=== PATIENT | male | born 1950 | race Caucasian/White ===

== ENCOUNTER 2020-08-24 09:35 | Emergency (ER) | payer MEDICARE ==
[~2020-08-24] VITALS: Ht 180.3 cm; Wt 117.5 kg
--- NOTE | 2020-08-24 09:52 | Emergency Department Note ---
History of Present Illnes History of Present Illness Chief Complaint: Back Pain History of Present Illness This is a 70 year old male Chief Complaint Comment Patient in from home with complaints of left hip pain that radiates down his left leg for 5 days. Patient reports a history of kidney stones but states this pain is not similar to the pain he has experienced with kidney stones in the past. 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 Historian: Patient Arrival Mode: Car Visitor Services Associate Required: No Onset (how long ago): day(s) (4) Location: L hip Quality: sharp Radiation: Reports extremity (LLL) Severity: moderate Onset quality: gradual Duration (how long): day(s) (4) Timing of current episode: constant Progression: worsening Chronicity: new Context: Denies recent illness, Denies recent surgery Relieving factors: none Exacerbating factors: none Associated symptoms: Reports denies other symptoms Treatments prior to arrival: other (Tylenol) Past Medical/Family History Physician Review I have reviewed the patient's past medical and family history. Any updates have been documented here. Past Medical History Recent Fever: No Clinical Suspicion of Infectio: No New/Unexplained Change in Ment: No Review of Systems Review of Systems Constitutional: Reports no symptoms EENTM: Reports no symptoms Cardiovascular: Reports no symptoms Respiratory: Reports no symptoms Gastrointestinal: Reports no symptoms Genitourinary: Reports no symptoms Musculoskeletal: Reports as per HPI (L hip and lateral leg pain) Integumentary: Reports no symptoms Neurological: Reports no symptoms Psychological: Reports no symptoms Endocrine: Reports no symptoms Hematological/Lymphatic: Reports no symptoms Physical Exam Related Data Allergies: Coded Allergies: bacitracin (Verified Allergy, Intermediate, 08/24/20) neomycin (Verified Allergy, Intermediate, 08/24/20) polymyxin B (Verified Allergy, Intermediate, 08/24/20) Triage Vital Signs Vital Signs Date Time Temp Pulse Resp B/P (MAP) Pulse Ox O2 Delivery O2 Flow Rate FiO2 08/24/20 09:39 97.7 65 16 189/81 98 Room Air Vital signs reviewed: Yes Physical Exam CONSTITUTIONAL Constitutional: Present well-developed, Present well-nourished HENT HENT: Present normocephalic, Present atraumatic, Present oropharynx clear/moist, Present nose normal HENT L/R: Present left ext ear normal, Present right ext ear normal EYES Eyes: Reports PERRL, Reports conjunctivae normal NECK Neck: Present ROM normal PULMONARY Pulmonary: Present effort normal, Present breath sounds normal CARDIOVASCULAR Cardiovascular: Present regular rhythm, Present heart sounds normal, Present capillary refill normal, Present normal rate GASTROINTESTINAL Abdominal: Present soft, Present nontender, Present bowel sounds normal GENITOURINARY Genitourinary: Present exam deferred SKIN Skin: Present warm, Present dry MUSCULOSKELETAL Musculoskeletal: Present ROM normal; Absent edema, Absent deformity, Absent tenderness, Absent swelling NEUROLOGICAL Neurological: Present alert, Present oriented x 3, Present no gross motor or sensory deficits PSYCHOLOGICAL Psychological: Present mood/affect normal, Present judgement normal Results Laboratory Lab results reviewed: Yes Imaging Imaging results reviewed: Yes Assessment & Plan Medical Decision Making MDM 70 y.o M presents for L lateral hip/knee pain. diff includes MSK pain, tensor fascia cornel, hip fx, etc. no abd tenderness. Exam shows VSS, within acceptable limits. Labs, X-rays negative. Diagnosis favors MSK pain likely tensor fascia cornel. Toradol given and instructed to use ibuprofen at home. Appropriate for DC. Assessment & Plan Final Impression: (1) Leg pain Depart Disposition: HOME, SELF-CARE Last Vital Signs Date Time Temp Pulse Resp B/P (MAP) Pulse Ox O2 Delivery O2 Flow Rate FiO2 08/24/20 09:39 97.7 65 16 189/81 98 Room Air Home Meds Reported Medications Prasugrel Hcl (EFFIENT) 10 Mg Tablet, 10 MG PO DAILY, #30 TAB 08/24/20 Escitalopram Oxalate (ESCITALOPRAM OXALATE) 10 Mg Tablet, 1 TAB PO DAILY 08/24/20 Aspirin (ASPIRIN CHEW) 81 Mg Chew, 81 MG PO DAILY, #30 TAB 08/24/20 Atorvastatin Calcium (ATORVASTATIN CALCIUM) 40 Mg Tablet, 40 MG PO HS, #30 TAB 08/24/20 EPIFANIO MILLIGAN MD Aug 24, 2020 09:52
[2020-08-24] MEDS ORDERED: ASPIRIN CHEW81 MG PO (09:55)
[2020-08-24] MEDS ORDERED: ATORVASTATIN CA40 MG PO (09:55)
[2020-08-24] MEDS ORDERED: ESCITALOPRAM OX10 MG PO (09:55)
[2020-08-24] MEDS ORDERED: EFFIENT10 MG PO (09:55)
[2020-08-24] MEDS ORDERED: KETOROLAC TROMETHAMINE 30 MG/ML VIAL IV STA (09:55)
[2020-08-24 10:05] LABS: BASOPHILS # (AUTO) 0.1 (0.0-0.1); BASOPHILS % 0.6 % (0.0-1.0); EOSINOPHILS # (AUTO) 0.3 (0.0-0.4); EOSINOPHILS % 3.3 % (0.0-6.0); HEMOGLOBIN 14.5 g/dL (14.0-18.0); LYMPHOCYTES # (AUTO) 2.2 (1.0-3.2); LYMPHOCYTES % 25.5 % (18.0-39.1); MEAN CORPUSCULAR HGB CONC 34.5 g/dL (31-35); MEAN CORPUSCULAR VOLUME 89.9 fL (81-99); MONOCYTES # (AUTO) 0.5 (0.2-0.8); MONOCYTES % 5.2 % (4.4-11.3); NEUTROPHILS # (AUTO) 5.7 (2.1-6.9); NEUTROPHILS % 64.8 % (38.7-80.0); PLATELET COUNT 256 x10e3/uL (140-360); RED BLOOD COUNT 4.67 x10e6/uL (4.3-5.7)
[2020-08-24 10:16] LABS: BILIRUBIN,URINE NEGATIVE (NEGATIVE); CLARITY,URINE CLEAR (CLEAR); COLOR,URINE YELLOW (YELLOW); KETONES,URINE 1+ (NEGATIVE); LEUKOCYTE ESTERASE ,URINE NEGATIVE (NEGATIVE); NITRITE,URINE NEGATIVE (NEGATIVE); PROTEIN,URINE DIPSTICK NEGATIVE (NEGATIVE); URINE UROBILINOGEN 0.2 mg/dL (0.2 - 1)
[2020-08-24 10:29] LABS: MUCUS,URINE FEW (RARE); WBC,URINE (MAN) 0-5 /HPF (0-5)
[2020-08-24 10:45] LABS: ALBUMIN 3.9 g/dL (3.5-5.0); ALBUMIN/GLOBULIN RATIO 1.1 (0.8-2.0); ANION GAP 16.1 mmol/L (8-16); CALCIUM 10.2 mg/dL (8.4-10.2); CREATININE, SERUM 1.37 mg/dL (0.72-1.25); POTASSIUM 4.1 mmol/L (3.5-5.1)
--- NOTE | 2020-08-24 10:50 | Diagnostic Imaging Report ---
Left hip, 3 views with a single view of the pelvis INDICATION: ^L hip/knee pain Comparison: None available. Discussion: Multiple views of the left hip and a single view the pelvis are negative for acute displaced fracture or dislocation. Hip joint spaces are well-maintained. Pubic symphysis is not widened. Pubic rami are grossly intact. Visualized portions of the sacrum are unremarkable. Visualized soft tissues are unremarkable. IMPRESSION: Negative for acute displaced fracture or dislocation of the left hip. Consider cross-sectional imaging if clinically indicated. Signed by: Daryl Saunders MD on 08/24/2020 10:47 AM
--- NOTE | 2020-08-24 10:51 | Diagnostic Imaging Report ---
Left knee, 3 views INDICATION: ^L hip/knee pain ^20200824 ^1025 Comparison: None available. Discussion: Multiple views of the left knee are negative for acute displaced fracture or dislocation. Negative for suprapatellar joint effusion. Small fibula is noted posteriorly. Joint spaces are well-maintained. IMPRESSION: Negative for acute displaced fracture or dislocation of the left knee. Signed by: Daryl Saunders MD on 08/24/2020 10:48 AM
== END 2020-08-24 12:14 | disposition home or self-care (01) ==
LOC: ER 09:45
DX: M25.552 Pain in left hip (principal); M79.662 Pain in left lower leg
CPT/HCPCS: 36415; 73502; 73562; 80053; 81001; 85025; 99284; J1885

== ENCOUNTER 2020-08-27 03:23 | Emergency (ER) | payer MEDICARE ==
[~2020-08-27] VITALS: Ht 180.3 cm; Wt 117.5 kg
[~2020-08-27 03:23] MED LIST: ASPIRIN CHEW81 MG PO; ATORVASTATIN CA40 MG PO; EFFIENT10 MG PO; ESCITALOPRAM OX10 MG PO
== END 2020-08-27 04:27 | disposition home or self-care (01) ==
LOC: ER 04:20
DX: M54.42 Lumbago with sciatica, left side (principal); I10 Essential (primary) hypertension; E11.40 Type 2 diabetes mellitus with diabetic neuropathy, unspecified; E78.5 Hyperlipidemia, unspecified; F32.9 Major depressive disorder, single episode, unspecified; Z87.442 Personal history of urinary calculi
CPT/HCPCS: 99282